=== PATIENT | female | born 1985 | race American Indian/Alaskan Native ===

== ENCOUNTER 2017-11-08 11:39 | Emergency (ER) | payer OTHER ==
[2017-11-08 13:40] LABS: Bacteria,Urine 1+ /HPF (Negative); Bilirubin,Urine NEG (Negative); Blood,Urine NEG (Negative); Color,Urine Yellow (Yellow); Mucus,Urine FEW /HPF; Nitrite,Urine NEG (Negative); Protein,Urine <15 mg/dL mg/dL (Negative); RBC,Urine < 1.0 /HPF (0.0-6.0)
[2017-11-08 13:42] LABS: HCG Qualitative,Urine Negative (Negative)
--- NOTE | 2017-11-08 17:13 | Emergency Department Report ---
Blank Doc - Documentation Documentation: Patient is a 32-year-old female with some suprapubic discomfort dysuria vaginal discharge for the past 4 days. Patient will be moved to a treatment room for a pelvic exam
--- NOTE | 2017-11-08 17:28 | Emergency Department Report ---
ED Female HPI - General Chief complaint: Urogenital-Female Stated complaint: ABDOMINAL PAIN Time Seen by Provider: 11/08/17 16:54 Source: patient Mode of arrival: Ambulatory Limitations: No Limitations - History of Present Illness Initial comments: Patient is a 32-year-old female with some suprapubic discomfort dysuria vaginal discharge for the past 4 days. Patient says she is relatively impressive for 4 years and he just moved out 2 months ago and he does not have any symptoms. She said that her discharge is yellow greenish. Denies any vaginal bleeding. Denies any abdominal or back pain. Denies any nausea vomiting or fever or chills. Pelvic pain is crampy comes and goes and it is 2 out of 10. MD Complaint: vaginal discharge, dysuria, pelvic pain, possible STD Onset/Timin -: days(s) Location: suprapubic Radiation: non-radiating Severity: mild Severity scale (0 -10): 2 Quality: cramping Consistency: intermittent Improves with: none Worsens with: urination Are you Now?: No (unknown) Associated Symptoms: vaginal discharge, abdominal pain, dysuria. denies: vaginal bleeding, nausea/vomiting, fever/chills, headaches, loss of appetite, hematuria, rash, seizure, shortness of breath, syncope, weakness - Related Data Sexually active: Yes Previous Rx's Medication Instructions Recorded Last Taken Type Sulfamethoxazole/Trimethoprim 1 each PO BID 3 Days #6 tablet 11/08/17 Unknown Rx [Bactrim DS TAB] metroNIDAZOLE [Flagyl] 500 mg PO Q12HR 7 Days #14 tab 11/08/17 Unknown Rx Allergies Allergy/AdvReac Type Severity Reaction Status Date / Time No Known Allergies Allergy Unverified 11/08/17 12:27 ED Review of Systems ROS: Stated complaint: ABDOMINAL PAIN Other details as noted in HPI Comment: All other systems reviewed and negative Constitutional: no symptoms reported ENT: denies: throat pain Respiratory: no symptoms reported Cardiovascular: denies: chest pain, palpitations, dyspnea on exertion, edema, syncope, paroxysmal nocturnal dyspnea Gastrointestinal: abdominal pain. denies: nausea, vomiting, diarrhea, constipation Genitourinary: dysuria, discharge. denies: urgency, frequency, hematuria, dyspareunia Musculoskeletal: denies: back pain, joint swelling, arthralgia, myalgia Skin: denies: rash Neurological: denies: headache, weakness, numbness, paresthesias, confusion, abnormal gait, vertigo ED Past Medical Hx - Past Medical History Previous Medical History?: Yes Additional medical history: 3 months ago treated for syphillis - Surgical History Past Surgical History?: No - Family History Family history: no significant - Social History Smoking Status: Never Smoker Substance Use Type: None - Medications Home Medications: Home Medications Medication Instructions Recorded Confirmed Last Taken Type Sulfamethoxazole/Trimethoprim 1 each PO BID 3 Days #6 tablet 11/08/17 Unknown Rx [Bactrim DS TAB] metroNIDAZOLE [Flagyl] 500 mg PO Q12HR 7 Days #14 tab 11/08/17 Unknown Rx ED Physical Exam - General Limitations: No Limitations General appearance: alert, in no apparent distress - Head Head exam: Present: atraumatic, normocephalic, normal inspection - Eye Eye exam: Present: normal appearance, PERRL, EOMI. Absent: nystagmus, periorbital swelling, periorbital tenderness Pupils: Present: normal accommodation - ENT ENT exam: Present: normal exam, normal orophraynx, mucous membranes moist - Neck Neck exam: Present: normal inspection, full ROM. Absent: tenderness, meningismus, lymphadenopathy, thyromegaly - Respiratory Respiratory exam: Present: normal lung sounds bilaterally. Absent: respiratory distress, chest wall tenderness, accessory muscle use - Cardiovascular Cardiovascular Exam: Present: regular rate, normal rhythm, normal heart sounds. Absent: systolic murmur, diastolic murmur - GI/Abdominal GI/Abdominal exam: Present: soft, normal bowel sounds. Absent: distended, tenderness, guarding, rebound, rigid, organomegaly, mass, bruit, pulsatile mass , hernia - External exam: Present: normal external exam. Absent: erythema, swelling, lesions, lacerations, ecchymosis, bleeding Speculum exam: Present: vaginal discharge, cervical discharge. Absent: normal speculum exam, erythema, vaginal bleeding, foreign body, tissue, laceration Bi-manual exam: Present: normal bi-manual exam. Absent: cervical motion tendernes, adnexal tenderness, adnexal mass, uterine enlargement, uterine tenderness - Extremities Exam Extremities exam: Present: normal inspection, full ROM, normal capillary refill , other (no clubbing, cyanosis or edema. +2 pulses throughout extremities and no neurovascular compromise.). Absent: tenderness, pedal edema, joint swelling , calf tenderness - Back Exam Back exam: Present: normal inspection, full ROM, other (ambulates without any difficulties). Absent: tenderness, CVA tenderness (R), CVA tenderness (L), muscle spasm, paraspinal tenderness, vertebral tenderness, rash noted - Neurological Exam Neurological exam: Present: alert, oriented X3, normal gait, reflexes normal. Absent: motor sensory deficit - Psychiatric Psychiatric exam: Present: normal affect, normal mood - Skin Skin exam: Present: warm, dry, intact, normal color. Absent: rash ED Course Vital Signs 11/08/17 11/08/17 12:21 19:28 Temperature 98.1 F Pulse Rate 74 Respiratory 16 18 Rate Blood Pressure 121/79 O2 Sat by Pulse 97 Oximetry - Reevaluation(s) Reevaluation #1: 11/08/17 20:27 Patient urinalysis shows that she has 1+ bacteria without any other abnormality. She is having dysuria so will treat empirically for UTI and sent culture. Patient pelvic exam normal except she has vaginal discharge in vaginal vault and CERVIX. PATIENT GIVEN TYLENOL FOR HEADACHE. SHE IS ABLE TO TOLERATE ORAL LIQUIDS WITHOUT ANY NAUSEA OR VOMITING. Reevaluation #2: 11/08/17 21:22 Patient given Rocephin 250 mg IM to treat gonorrhea and azithromycin 1 g by mouth to treat chlamydia. She chose to be treated empirically emergency room for gonorrhea and chlamydia ED Medical Decision Making - Lab Data Lab Results 11/08/17 Range/Units Unknown Urine Color Yellow (Yellow) Urine Turbidity Clear (Clear) Urine pH 5.0 (5.0-7.0) Ur Specific [place] 1.025 (1.003-1.030) Urine Protein <15 mg/dl (Negative) mg/dL Urine Glucose (UA) Neg (Negative) mg/dL Urine Ketones Neg (Negative) mg/dL Urine Blood Neg (Negative) Urine Nitrite Neg (Negative) Urine Bilirubin Neg (Negative) Urine Urobilinogen 2.0 (<2.0) mg/dL Ur Leukocyte Esterase Neg (Negative) Urine WBC (Auto) 1.0 (0.0-6.0) /HPF Urine RBC (Auto) < 1.0 (0.0-6.0) /HPF U Epithel Cells (Auto) 1.0 (0-13.0) /HPF Urine Bacteria (Auto) 1+ (Negative) /HPF Urine Mucus Few /HPF Urine HCG, Qual Negative (Negative) urine culture pending Gonorrhea and chlamydia pending wet prep positive BV, negative Trichomonias and yeast - Medical Decision Making ED course: He reports that she's been sent for STD with malodorous vaginal discharge and requested to be tested and be treated. He should also report some urinary burning and her urinalysis show small amount of bacteria without any other abdomen allergies. Patient pelvic exam normal except she has discharged on her cervix and in the vaginal vault and external vaginal area normal appearance. No cervicitis noted. Patient and wet prep came back positive for bacterial vaginosis and negative for Trichomonas and yeast. Gonorrhea and chlamydia is pending. This was discussed with patient. She chose to be treated empirically for gonorrhea and chlamydia with Rocephin 250 mg IM and Zithromax 1 g by mouth. She had no adverse reaction. I also discussed the patient that she has urinary burning with some bacteria in her urine I'll go ahead and treat her for urinary tract infection for 3 days.. States that encouraged and I also encouraged her to tell her partner that she was treated for STD in emergency room and he needs to be tested. I discussed the patient that she should call felt that [facility] as scheduled appointment for follow-up visit. Patient reported that [facility] is closed as a 6 days ago and does not plan to be reopened for now. She states she was told to go to [facility] if she needs to be tested. Patient discharged home with prescription for Flagyl and Bactrim DS. Critical care attestation.: If time is entered above; I have spent that time in minutes in the direct care of this critically ill patient, excluding procedure time. ED Disposition Clinical Impression: Concern about STD in female without diagnosis, Foul smelling vaginal discharge , Bacteria in urine, Dysuria Disposition: DC-01 TO HOME OR SELFCARE Is pt being admited?: No Does the pt Need Aspirin: No Condition: Stable Instructions: Urinary Tract Infection in Children (ED), Dysuria (ED), Safe Sex (ED), Sexually Transmitted Diseases (ED), Bacterial Vaginosis (ED) Additional Instructions: Increase fluid intake Take medication as prescribed Please do not have any sexual activity for 2 weeks Tell your Partner that you treated for STD Prescriptions: metroNIDAZOLE [Flagyl] 500 mg PO Q12HR 7 Days #14 tab Sulfamethoxazole/Trimethoprim [Bactrim DS TAB] 1 each PO BID 3 Days #6 tablet Referrals: [facility] [Outside] - 3-5 Days Forms: Accompanied Note, Work/School Release Form(ED)
[2017-11-08] MEDS ORDERED: TYLENOL ONE (19:20)
[2017-11-08] MEDS ORDERED: TYLENOL PO ONE (19:25)
[2017-11-08] MEDS ORDERED: ROCEPHIN IM ONE (21:14)
[2017-11-08] MEDS ORDERED: XYLOCAINE 1% MPF 5 mL INFILTRATI ONE (21:14)
[2017-11-08] MEDS ORDERED: ZITHROMAX PO ONE (21:14)
[2017-11-08 21:59] VITALS: BP 120/74
== END 2017-11-08 21:58 | disposition home or self-care (01) ==
LOC: ED 11:39
DX: R30.0 Dysuria (principal); R82.71 Bacteriuria
CPT/HCPCS: 81001; 81025; 87086; 87210; 87591; 96372; 99284; J0696